=== PATIENT | female | born 1970 | race African-American/Black ===

== ENCOUNTER 2017-08-06 11:52 | Emergency (ER) | payer OTHER ==
[~2017-08-06] VITALS: Ht 154.9 cm; Wt 68.0 kg
[2017-08-06] MEDS ORDERED: HYDROCODONE-AP1 EAC6 PO (12:50)
== END 2017-08-06 12:54 | disposition home or self-care (01) ==
LOC: ER 11:52
DX: S09.90XA Unspecified injury of head, initial encounter (principal); F17.210 Nicotine dependence, cigarettes, uncomplicated; W00.9XXA Unspecified fall due to ice and snow, initial encounter; Y93.89 Activity, other specified; Y92.89 Other specified places as the place of occurrence of the external cause; Y99.0 Civilian activity done for income or pay

== ENCOUNTER 2020-07-10 12:21 | Emergency (ER) | payer OTHER ==
[~2020-07-10] VITALS: Ht 162.6 cm; Wt 76.2 kg
[~2020-07-10 12:21] MED LIST: HYDROCODONE-AP1 EAC6 PO
[2020-07-10 12:47] LABS: URINE BILIRUBIN NEGATIVE (Negative); URINE BLOOD 1+ (Negative); URINE CLARITY CLEAR; URINE COLOR YELLOW; URINE GLUCOSE-RANDOM* NEGATIVE (Negative); URINE KETONES NEGATIVE (Negative); URINE LEUKOCYTES-REFLEX TRACE (Negative); URINE PROTEIN (DIPSTICK) NEGATIVE (Negative); URINE SPECIFIC GRAVITY >= 1.030 (1.005-1.035); URINE UROBILINOGEN 0.2 E.U./dl (0.2-1.0)
[2020-07-10 12:49] LABS: URINE NITRITE-REFLEX POSITIVE (Negative)
[2020-07-10 13:05] LABS: CASTS None Seen /LPF (None Seen); CRYSTALS None Seen /LPF (None Seen); MUCUS 0-3 Light strn/LPF (None Seen); SQUAMOUS 0-3 Few /LPF (0-3)
[2020-07-10 13:06] LABS: BACTERIA-REFLEX >30 Many /HPF (None Seen); URINE RBC 0-2 Rare /HPF (0-2); URINE WBC-REFLEX 0-5 Rare /HPF (0-5)
[2020-07-10] MEDS ORDERED: NAPROSYN500 MG PO (13:51)
[2020-07-10] MEDS ORDERED: KEFLEX500 M1 PO (13:51)
[2020-07-10 14:00] VITALS: BP 144/81
== END 2020-07-10 14:00 | disposition home or self-care (01) ==
LOC: ER 12:21
PROVIDERS: Physician Assistant
DX: M77.11 Lateral epicondylitis, right elbow (principal); N39.0 Urinary tract infection, site not specified; R51.9 Headache, unspecified; R20.0 Anesthesia of skin; R20.2 Paresthesia of skin; F17.210 Nicotine dependence, cigarettes, uncomplicated; Z79.899 Other long term (current) drug therapy

== ENCOUNTER 2020-10-29 13:28 | Emergency (ER) | payer OTHER ==
[~2020-10-29] VITALS: Ht 154.9 cm; Wt 69.8 kg
[~2020-10-29 13:28] MED LIST changes: +KEFLEX500 M1 PO; +NAPROSYN500 MG PO
[2020-10-29] MEDS ORDERED: ROBAXIN 750 MG750 MG PO (14:44)
[2020-10-29 14:59] VITALS: BP 125/73
== END 2020-10-29 14:59 | disposition home or self-care (01) ==
LOC: ER 13:28
DX: M54.5 Low back pain (principal); F17.210 Nicotine dependence, cigarettes, uncomplicated; Z79.899 Other long term (current) drug therapy